=== PATIENT | female | born 2005 | race Caucasian/White ===

== ENCOUNTER 2024-08-07 17:30 | Inpatient (IN) | payer OTHER ==
[2024-08-07 18:34] VITALS: BMI 26.2
[2024-08-07] MEDS: ELECTROLYTE-148 SOLN 1,000 ML IV SCH (19:00)
[2024-08-07 19:16] LABS: HEMATOCRIT 39.3 % (32.4-45.2); HEMOGLOBIN 12.8 GM/dL (10.7-15.3); MCH 30.2 pg (25.7-33.7); MCHC 32.6 g/dl (32.0-36.0); MEAN CELL VOLUME 92.5 fl (80-96); MEAN PLT VOLUME 9.7 fl (7.5-11.1); PLATELET COUNT 298 10^3/uL (134-434); RBC 4.24 M/mm3 (3.60-5.2); RDW 14.7 % (11.6-15.6)
[2024-08-07 19:32] LABS: INR 0.88 (0.83-1.09)
[2024-08-07 19:35] LABS: ACTIVATED PTT 29.3 SECONDS (25.2-36.5)
[2024-08-07 19:36] LABS: BLOOD UREA NITROGEN 6.6 mg/dL (7-18)
[2024-08-07 19:40] LABS: CREATININE 0.5 mg/dL (0.55-1.3)
[2024-08-07] MEDS ORDERED: FENTANYL/BUPIVACAINE/NS/PF - PCEA - 50 ML DISP.SYRIN EP ONE (19:40)
[2024-08-07] MEDS ORDERED: BUPIVACAINE HCL/PF 0.25% (2.5MG/ML) 10 ML VIAL ONE (19:55)
[2024-08-07] MEDS: FENTANYL/BUPIVACAINE/NS/PF - PCEA - 50 ML DISP.SYRIN EP SCH (20:15)
[2024-08-07] MEDS ORDERED: NALOXONE HCL 0.4 MG/ML VIAL IVPUSH PRN (20:35)
[2024-08-07 20:57] LABS: ANISOCYTOSIS 1+; MACROCYTOSIS 0
[2024-08-07] MEDS ORDERED: LIDOCAINE HCL 1% PRESERVATIVE FREE - 30ML VIAL ONE (21:29)
[2024-08-07] MEDS ORDERED: OXYTOCIN 20 UNITS in 0.9% NS 20 UNIT/1,000 ML INFUS.BAG IV ONE (21:30)
[2024-08-07] MEDS: OXYTOCIN 20 UNITS in 0.9% NS 20 UNIT/1,000 ML INFUS.BAG IV SCH (22:28)
[2024-08-07] MEDS ORDERED: BISACODYL 10 MG SUPP.RECT RC PRN (22:59)
[2024-08-07] MEDS ORDERED: BENZOCAINE 28 GM HEMORRHOIDAL OINTMENT TP PRN (22:59)
[2024-08-07] MEDS ORDERED: BENZOCAINE 20% 57 GM BOTTLE TP PRN (22:59)
[2024-08-07] MEDS ORDERED: METHYLERGONOVINE MALEATE 0.2 MG/1 ML AMP IM PRN (22:59)
[2024-08-07] MEDS ORDERED: oxyCODONE HCL 5 MG TABLET PO PRN (22:59)
[2024-08-07] MEDS ORDERED: WITCH HAZEL 50% (TUCKS) 40 PAD/JAR PAD TP PRN (22:59)
[2024-08-08] MEDS ORDERED: ACETAMINOPHEN 325 MG TABLET (FP) ONE (00:12)
[2024-08-08] MEDS: ACETAMINOPHEN 325 MG TABLET (FP) PO PRN (00:15)
[2024-08-08 01:26] VITALS: RESP 18
[2024-08-08] MEDS: IBUPROFEN 600 MG TABLET (FP) PO PRN (01:35)
[2024-08-08 07:45] LABS: HEMATOCRIT 29.8 % (32.4-45.2); HEMOGLOBIN 9.9 GM/dL (10.7-15.3); MCH 30.4 pg (25.7-33.7); MEAN CELL VOLUME 92.1 fl (80-96); MEAN PLT VOLUME 9.5 fl (7.5-11.1); PLATELET COUNT 229 10^3/uL (134-434); RBC 3.24 M/mm3 (3.60-5.2); RDW 14.7 % (11.6-15.6); WHITE BLOOD COUNT 21.1 K/mm3 (4.0-10.0)
[2024-08-08 09:00] LABS: ANISOCYTOSIS 0; MACROCYTOSIS 0
[2024-08-08] MEDS ORDERED: SENNOSIDES/DOCUSATE COMBO (SENNA PLUS) TABLET (UD) PO PRN (22:00)
[2024-08-09] MEDS ORDERED: GENTAMICIN 80 MG PREMIXED IVPB 80 MG/100 ML BAG IVPB SCH (11:03)
[2024-08-09] MEDS: GENTAMICIN INJECTION 80 MG in DEXTROSE 5%-WATER - 250 ML IVPB SCH (11:34)
[2024-08-09] MEDS: AMPICILLIN - 1 GM in SODIUM CHLORIDE 100 ML IVPB SCH (11:42)
[2024-08-09] MEDS: CLINDAMYCIN 900 MG PREMIX IVPB 900 MG/50 ML BAG IVPB SCH ×2 (12:47→21:06)
[2024-08-09] MEDS: GENTAMICIN 80 MG PREMIXED IVPB 80 MG/100 ML BAG IVPB SCH ×2 (13:38→21:37)
[2024-08-09 15:37] LABS: URINE APPEARANCE CLEAR; URINE BILIRUBIN NEGATIVE (NEGATIVE); URINE COLOR YELLOW; URINE GLUCOSE (UA) NEGATIVE (NEGATIVE); URINE KETONE NEGATIVE (NEGATIVE); URINE LEUK ESTERASE 1+ (NEGATIVE); URINE NITRITE NEGATIVE (NEGATIVE); URINE PROTEIN NEGATIVE (NEGATIVE)
[2024-08-09 16:04] LABS: EPI CELLS 10 /uL (0-25.1); HYALINE CASTS 0.14 /uL (0-3.1); URINE BACTERIA 135 /uL (0-1359); URINE WBC 273 /uL (0-25.8)
[2024-08-10] MEDS: ACETAMINOPHEN 325 MG TABLET (FP) PO PRN (01:47)
[2024-08-10 09:15] LABS: BASO % 0.2 % (0-2.0); EOS % 0.5 % (0-4.5); HEMOGLOBIN 10.3 GM/dL (10.7-15.3); LYMPH % 12.7 % (8-40); MCH 30.1 pg (25.7-33.7); MCHC 32.3 g/dl (32.0-36.0); MEAN CELL VOLUME 93.2 fl (80-96); MEAN PLT VOLUME 8.9 fl (7.5-11.1); NEUT % 82.6 % (42.8-82.8); PLATELET COUNT 246 10^3/uL (134-434); RBC 3.43 M/mm3 (3.60-5.2); WHITE BLOOD COUNT 14.5 K/mm3 (4.0-10.0)
[2024-08-10] MEDS ORDERED: SODIUM CHLORIDE 1,000 ML IV SCH (09:15)
[2024-08-11 10:18] VITALS: BP 100/58; PULSE 88; TEMP 98.3
== END 2024-08-11 13:45 | disposition home or self-care (01) | DRG 560 ==
LOC: JDEL 17:30 → JLDR 17:53 → J3W 08-08 01:43
PROVIDERS: ADMIT Specialist; ATTEND Specialist
PROC: 0KQM0ZZ Repair Perineum Muscle, Open Approach (ICD-10-PCS; principal; 2024-08-07)
PROC: 10E0XZZ Delivery of Products of Conception, External Approach (ICD-10-PCS; 2024-08-07)
DX: O70.1 Second degree perineal laceration during delivery (principal); O75.3 Other infection during labor; N71.9 Inflammatory disease of uterus, unspecified; Z3A.39 39 weeks gestation of pregnancy; Z37.0 Single live birth
CPT/HCPCS: 36415; 59409; 80048; 81003; 85025; 85610; 85730; 86780; 86850; 86900; 86901; 87040; 87086; 88307-TC